=== PATIENT | male | born 1970 | race Caucasian/White ===

== ENCOUNTER 2017-01-05 12:11 | Emergency (ER) | payer OTHER ==
[~2017-01-05] VITALS: Ht 172.7 cm; Wt 79.5 kg
[2017-01-05 12:15] VITALS: BP 125/86; PULSE 62; RESP 16; O2SAT 98
--- NOTE | 2017-01-05 12:39 | ED.REPORT ---
HPI-Psychiatric Illness Date of Service January 05, 2017 ED Provider: Josiah Flowers DO Pt is a 46 year old male with a hx of PTSD and depression presenting to the ED complaining of suicidal ideation with a plan onset 4 days ago. He reports that 2 days ago he smoked methamphetamines, which he hasn't done for many years. He is seeing a psychiatrist, a counsellor, and a PCP through [facility]. His plan is to hang himself from the bannister in his house when his fiance and son are gone. Denies homicidal ideation, or auditory or visual hallucinations. He is looking for a safe place for him to be monitored by someone other than his family where he can be on his medications. Nursing Notes Stated Complaint: MENTAL HEALTH EVALUATION Chief Complaint: Psychiatric Complaint Nursing Notes Reviewed: Yes Allergies: Coded Allergies: No Known Allergies (Unverified , 01/05/17) Scheduled Levothyroxine (Levothyroxine) 25 Mcg Tablet 25 MCG PO TID Mirtazapine (Mirtazapine) 30 Mg Tablet 30 MG PO HS Pravastatin (Pravastatin) 40 Mg Tablet 40 MG PO DAILY Propranolol HCl (Propranolol HCl) 20 Mg Tablet 20 MG PO TID Ranitidine (Ranitidine) 150 Mg Capsule 150 MG PO DAILY Scheduled PRN Alprazolam (Alprazolam) 1 Mg Tablet 1 MG PO DAILY PRN PRN For Anxiety Clonazepam (Clonazepam) 1 Mg Tablet 1 MG PO BID PRN PRN For Anxiety oxyCODONE-Acetaminophen 7.5-325 mg (oxyCODONE-Acetaminophen 7.5-325 mg) 1 Each Tablet 1 TAB PO Q6H PRN PRN For Pain General Time Seen by MD: 12:37 Chief Complaint Suicidal ideation Hx Obtained From: Patient Arrived By: Walk-in Onset Occurred: 4 days ago Symptom Duration: Since onset Progression Since Onset: Constant Severity: Current: No pain currently Severity: Maximum: No pain Recent Healthcare: No recent doctor visit, No recent hospitalization Similar Sx Previous: Yes Risk-Psychiatric Illness Suicide Risk Stratification Suicide Risk Factors - Adult: : Prior psych admission: Substance abuse RF Statements: Risk factors reviewed Past Medical History Past Medical History PTSD Depression Past Surgical History Knee, shoulder and eye surgery Reports: Appendectomy Social History Drug Use: Meth (2 days ago) Ambulatory Status Independent Review of Systems Psychiatric: Reports: Depression, Suicidal ideation, Denies: Hallucinations, auditory, Hallucinations, visual, Homicidal ideation Complete sys rev & neg: except as marked. Physical Exam Initial Vital Signs Vital Signs (First) Date Time Temp Pulse Resp B/P Pulse Ox O2 Delivery O2 Flow Rate FiO2 01/05/17 12:15 36.2 62 16 125/86 98 Room Air Initial VS: Reviewed Head / Eyes: Atraumatic, Normocephalic, PERRL ENT: Mucous membranes moist, Conjunctiva normal, No scleral icterus Respiratory: Breath sounds normal, Clear to auscultation, No respiratory distress Cardiovascular: Regular rate & rhythm, Heart sounds normal, Intact distal pulses Abdomen / GI: Soft, Non-tender, No guarding, No rebound, No distention Extremities: Vascular intact, Neuro intact, No swelling, No tenderness Skin: Warm, Dry, No cyanosis General/Constitutional: Awake, Alert Neurologic: Oriented X3, Speech NL, No motor deficits, No sensory deficits, Memory NL Psychiatric: No hallucinations, Cognitive function NL, Judgment/insight NL, Thought content NL Abnormal Mood/Affect: Positive: Flat affect Abnormal Thinking / Perception: Positive: Suicidal, with plan Interpretation & Diagnostics Interpretation & Diagnostics: Urine Positive for ecstasy, oxycodone, benzodiazepines, methamphetamine, opiates, and amphetamines Lab Results Interpretation Result Diagram: 01/05/17 1215 01/05/17 1215 Test 01/05/17 12:15 01/05/17 12:38 White Blood Count 9.4th/mm3 (3.8-10.1) Red Blood Count 5.21mil/mm3 (4.40-5.80) Hemoglobin 15.7g/dL (13.8-17.2) Hematocrit 45.9% (41.0-50.0) Mean Corpuscular Volume 88.1fL (81-100) Mean Corpuscular Hemoglobin 30.1pg (27.0-35.0) Mean Corpuscular Hemoglobin Concent 34.2% (32.0-37.0) Red Cell Distribution Width 13.4% (12.3-15.4) Platelet Count 369bil/L (150-400) Neutrophils (%) (Auto) 66.8% (40-74) Lymphocytes (%) (Auto) 23.6% (14-46) Monocytes (%) (Auto) 8.0% (4-12) Eosinophils (%) (Auto) 1.1% (0-5) Basophils (%) (Auto) 0.3% (0-3) Sodium Level 131mEq/L (134-144) Potassium Level 4.0mEq/L (3.5-5.2) Chloride Level 92mEq/L (97-108) Carbon Dioxide Level 25mmol/L (18-29) Blood Urea Nitrogen 11mg/dL (6-24) Creatinine 0.77mg/dL (0.76-1.27) Estimat Glomerular Filtration Rate 115mL/min (>59) Glucose Level 103mg/dL (60-99) Calcium Level 10.1mg/dL (8.5-10.1) Total Bilirubin 0.8mg/dL (0.0-1.2) Aspartate Amino Transf (AST/SGOT) 27U/L (0-50) Alanine Aminotransferase (ALT/SGPT) 36U/L (0-44) Alkaline Phosphatase 92U/L (25-150) Total Protein 8.6g/dL (6.4-8.4) Albumin 4.7g/dL (3.4-5.0) Thyroid Stimulating Hormone (TSH) 7.550uIU/mL (0.450-4.500) Hold [place] Top Tube Received (Received) Hold Urine Received (Received) Re-Eval/Medical Decision Med Decision/Clinical Course Patient arrives suicidal in the setting of recent methamphetamine use. He is been observed for several hours in the ER and ultimately does not feel suicidal anymore. The original plan was to find him a monitored setting where he could be away from his fiance, however after social work had explored options, the only option was the [facility] which is in [place] and he was not agreeable to this. He does contract for safety. Early on in the course of discussion with social work he had a safety plan which was to go back to his [id number]'s house. He is agreeable to go home, follow up with his counselor, agrees to continue meds, agrees to stay safe, agrees to either return the ER or pursue other resources if he begins to feel suicidal again. He does not seem detainable at this time. Return and follow-up precautions given. Re-Evaluation/Progress #1: Time of Eval: 16:20 Patient Status: Condition improved Re-Evaluation/Progress Note: Pt reports that [facility] not [facility] [place] because he lives in [place]. He also would not like to [facility] if it means that he won't be given his benzodiazepines. Re-Evaluation/Progress #2: Time of Eval: 16:30 Patient Status: Condition improved Re-Evaluation/Progress Note: discussed with executive secretary social welfare and patient meaningful discharge plans. Re-Evaluation/Progress #3: Time of Eval: 16:41 Patient Status: Condition improved Re-Evaluation/Progress Note: Pt promises that he is no longer suicidal, he will go home to family, and that he will be safe. Counseled Regarding: Diagnosis, Lab results, Need for follow-up, When/why to return to ED Discharge & Departure Impression: Primary Impression: Depression Depression Type: unspecified Qualified Code: F32.9 - Major depressive disorder, single episode, unspecified Disposition: Home Discharge Condition All VS Reviewed: Yes Condition: Improved Additional Instructions: As the social work resources provided. Follow-up with your counselor tomorrow for a close appointment. Continue your regular medicine. Call the crisis Center, call 911, or return to the closest ER if you develop recurrent thoughts of suicide. Referrals: Mandeep Lara MD Attestation Portions of this note were transcribed by Amelie Segura. I, Dr. Flowers personally performed the history, physical exam and medical decision-making; I reviewed and confirmed the accuracy of the information in the transcribed note. Signed by: Saritha Coker, 01/05/2017 at 1645. copies to: Mandeep Lara MD, Timothy Justino MOREIRA January 05, 2017 12:39 AMELIE SEGURA January 05, 2017 13:06
[2017-01-05 13:24] LABS: BASOPHILS % (AUTO) 0.3 % (0-3); EOSINOPHILS % (AUTO) 1.1 % (0-5); Mean Corpuscular Hemoglobin 30.1 pg (27.0-35.0); Mean Corpuscular Volume 88.1 fL (81-100); NEUTROPHILS % (AUTO) 66.8 % (40-74); Platelet Count 369 bil/L (150-400)
[2017-01-05] MEDS ORDERED: LEVO25TA5 PO (13:54)
[2017-01-05] MEDS ORDERED: PRAV40TA PO (13:54)
[2017-01-05] MEDS ORDERED: KLO1T PO (13:54)
[2017-01-05] MEDS ORDERED: OXYC-465 PO (13:54)
[2017-01-05] MEDS ORDERED: PROP20TA5 PO (13:54)
[2017-01-05] MEDS ORDERED: RANI150C4 PO (13:54)
[2017-01-05] MEDS ORDERED: MIRT30TA6 PO (13:54)
[2017-01-05] MEDS ORDERED: ALPR1TAB7 PO (13:54)
== END 2017-01-05 16:59 | disposition home or self-care (01) ==
LOC: SED 12:11
DX: F32.9 Major depressive disorder, single episode, unspecified (principal); R45.851 Suicidal ideations; F43.10 Post-traumatic stress disorder, unspecified; F15.10 Other stimulant abuse, uncomplicated; F17.200 Nicotine dependence, unspecified, uncomplicated

== ENCOUNTER 2017-01-07 10:18 | Emergency (ER) | payer OTHER ==
[~2017-01-07] VITALS: Ht 172.7 cm; Wt 79.5 kg
[~2017-01-07 10:18] MED LIST: ALPR1TAB7 PO; KLO1T PO; LEVO25TA5 PO; MIRT30TA6 PO; OXYC-465 PO; PRAV40TA PO; PROP20TA5 PO; RANI150C4 PO
[2017-01-07 10:22] VITALS: BP 152/101; PULSE 119; RESP 12; O2SAT 97
--- NOTE | 2017-01-07 10:44 | ED.REPORT ---
HPI-Psychiatric Illness Date of Service January 07, 2017 ED Provider: Josiah Flowers DO 46 year old male with a history of PTSD, depression, and methamphetamine abuse presents to the ER accompanied by his fiance requesting voluntary admission for suicidal ideation. Patient continues to have suicidality with plan for suicide by hanging himself from a banister at his fiance's house, similar to his previous visit. He was seen here in the department two days ago for similar and told to return if symptoms worsened. Nursing Notes Stated Complaint: MENTAL FOLLOW UP Chief Complaint: Psychiatric Complaint Nursing Notes Reviewed: Yes Allergies: Coded Allergies: hydrocodone (Verified Allergy, Intermediate, itching, 01/07/17) ketorolac (Verified Adverse Reaction, Intermediate, unalbe to urinate and painful urination, 01/07/17) topiramate (Verified Adverse Reaction, Intermediate, GI upset, 01/07/17) Scheduled Levothyroxine (Levothyroxine) 25 Mcg Tablet 25 MCG PO TID Mirtazapine (Mirtazapine) 30 Mg Tablet 30 MG PO HS Pravastatin (Pravastatin) 40 Mg Tablet 40 MG PO DAILY Propranolol HCl (Propranolol HCl) 20 Mg Tablet 20 MG PO TID Ranitidine (Ranitidine) 150 Mg Capsule 150 MG PO DAILY Scheduled PRN Alprazolam (Alprazolam) 1 Mg Tablet 1 MG PO DAILY PRN PRN For Anxiety Clonazepam (Clonazepam) 1 Mg Tablet 1 MG PO BID PRN PRN For Anxiety oxyCODONE-Acetaminophen 7.5-325 mg (oxyCODONE-Acetaminophen 7.5-325 mg) 1 Each Tablet 1 TAB PO Q6H PRN PRN For Pain General Time Seen by MD: 10:39 Chief Complaint Suicidal ideation Hx Obtained From: Patient Arrived By: Walk-in Onset Occurred: 3 days ago Symptom Duration: Constant Related History: Reports: Depression Recent Healthcare: Recent doctor visit Similar Sx Previous: Yes Risk-Psychiatric Illness Suicide Risk Stratification Suicide Risk Factors - Adult: : Substance abuse RF Statements: Risk factors reviewed Past Medical History Past Medical History PTSD Depression Past Surgical History Knee, shoulder and eye surgery Reports: Appendectomy Smoking History Current Every Day Smoker Social History Drug Use: Meth Ambulatory Status Independent Review of Systems Psychiatric: Reports: Depression, Suicidal ideation, Denies: Change mental status, Confusion, Delusional, Hallucinations, auditory , Hallucinations, visual, Homicidal ideation, Hostile Complete sys rev & neg: except as marked. Physical Exam Initial Vital Signs Vital Signs (First) Date Time Temp Pulse Resp B/P Pulse Ox O2 Delivery O2 Flow Rate FiO2 01/07/17 10:22 35.8 119 12 152/101 97 Room Air Initial VS: Reviewed Head / Eyes: Atraumatic, Normocephalic Neck: Supple, Non-tender, Full range of motion Extremities: Vascular intact, Neuro intact, No swelling, No tenderness Skin: Warm, Dry, No cyanosis General/Constitutional: Awake, Alert, Well developed, Well nourished Neurologic: Oriented X3, Speech NL, No motor deficits, No sensory deficits, Memory NL Psychiatric: Not homicidal, No hallucinations, Cognitive function NL Abnormal Thinking / Perception: Positive: Suicidal, with plan ENT: Airway patent, Mucous membranes moist Interpretation & Diagnostics Lab Results Interpretation Test 01/07/17 10:51 Hold Urine Received (Received) Re-Eval/Medical Decision Med Decision/Clinical Course Suicidal ideation requesting voluntary admission. [facility] has been accepted [facility]. Labs were done 2 days ago and the patient is medically clear. Incidentally he also has a early cellulitis to the left deltoid is not an abscess at this point and not drainable. Recommend Bactrim twice daily. Source of Hx: Old records Re-Evaluation/Progress #1: Time of Eval: 11:35 Re-Evaluation/Progress Note: Mother is now present in the department. Patient's fiance approached me at my desk to inquire about the plan of care. All questions addressed. Re-Evaluation/Progress #2: Time of Eval: 13:56 Re-Evaluation/Progress Note: Patient is calm, resting comfortably. Medications ordered. Patient is amenable to plan to be transferred to the [facility] for voluntary psychiatric admission. All other questions addressed. Consultation : Consulted With: dimension mill worker Call Returned at: 11:16 [facility]: Will see patient Note: Discussed patient case with TIFFANI Mcwilliams. [id number] notified by social work that the patient has been accepted at the [facility]. Counseled Regarding: Diagnosis, Lab results, Need for transfer Discharge & Departure Impression: Primary Impression: Suicidal ideation Additional Impression: Cellulitis )( Condition at Discharge: Clear for psych facility Disposition: Transfer, [facility] Transfer Accepted: Yes Transfer Accepted at: 15:30 Spoke with: Attending physician (Dr Sy) Patient Status: Stable Patient Informed: Yes Discharge Condition All VS Reviewed: Yes Condition: Stable Referrals: Mandeep Lara MD (PCP) Saritha Attestation Portions of this note were transcribed by Demetrius Short. I, Dr. Flowers, personally performed the history, physical exam and medical decision-making; I reviewed and confirmed the accuracy of the information in the transcribed note. Signed by: Saritha Fernandez, 01/07/2017 and 14:02 copies to: Mandeep Lara MD, Timothy S DO January 07, 2017 10:44 DEMETRIUS SHORT January 07, 2017 10:48
[2017-01-07] MEDS ORDERED: Trimethoprim-Sulfa 160 mg-800 mg Tablet PO ONE (14:00)
[2017-01-07] MEDS ORDERED: oxyCODONE-Acetamin 10-325 mg Tablet PO ONE (14:00)
[2017-01-07] MEDS ORDERED: ALPRAZolam 0.5 mg Tablet PO ONE ×2 (14:45)
[2017-01-07 14:58] VITALS: BP 122/84; PULSE 114; RESP 18; O2SAT 96
[2017-01-07] MEDS ORDERED: oxyCODONE-Acetamin 5-325 mg Tablet PO ONE (17:00)
[2017-01-07 17:36] VITALS: BP 127/86; PULSE 93; RESP 16; O2SAT 97
== END 2017-01-07 17:37 ==
LOC: SED 10:18
DX: R45.851 Suicidal ideations (principal); L03.114 Cellulitis of left upper limb; F43.10 Post-traumatic stress disorder, unspecified; F17.200 Nicotine dependence, unspecified, uncomplicated; Z88.5 Allergy status to narcotic agent; Z88.8 Allergy status to other drugs, medicaments and biological substances; Z79.899 Other long term (current) drug therapy